=== PATIENT | female | born 1950 | race Caucasian/White ===

== ENCOUNTER 2016-10-28 18:38 | Emergency (ER) | payer MEDICARE, BC ==
[~2016-10-28] VITALS: Ht 165.1 cm; Wt 67.2 kg
[~2016-10-28 18:38] MED LIST: ASPI-586 PO; CANA100T PO; ERGO400C PO; INSU100I14 SQ; KCL10CCR PO; LANTUS SOL100 UNIT/1 SQ; LEVO88TA2 PO; LOPE2TAB17 PO; LSNP20T PO; METF500T4 PO; ONDAN4ODT PO; POTA99TA16 PO; PRM25T PO; SMV20T PO
--- OUTSIDE RECORDS SUMMARY | 2016-10-28 18:42 | XMS REPORT | Referral Summary ---
Author Author [facility] Organization [facility] Address Unknown Phone Unavailable Care Team Providers Care Correctional Officer Name Role Phone Nico [place] PCP [phone] Encounter Date(s): 03/26/15 - 03/26/15 [facility] [address] [place] [address] [facility] Discharge Diagnosis: Benign essential hypertension Discharge Diagnosis: Hypothyroidism Discharge Diagnosis: long-term current use of insulin Discharge Diagnosis: Diabetes type 2, controlled Discharge Diagnosis: Mixed hyperlipidemia Discharge Disposition: 01-Home or Self Care Attending Physician: Angie Branham APRN Admitting Physician: Angie Branham APRN Vital Signs Most recent to 1 oldest [Reference Range]: Peripheral Pulse 76 bpm Rate [60-100 bpm] (03/26/15 9:41 AM) Blood Pressure 110/68 mmHg [90-140/60-90 mmHg] (03/26/15 9:41 AM) Problem List Condition Effective Dates Status Health Status Informant Hypothyroidism Active (disorder)(Confirmed ) Benign essential Active hypertension (disorder)(Confirmed ) 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 Start Date: 06/26/15 Status: OrderedGlucometer Lancets (DME) DME Item ACCU-CHEK SOFTCLIX Test QID, See Instructions, # 1 Each, 0 Refill(s), Supply Start Date: 04/19/14 Status: OrderedInvokana 300 mg oral tablet See Instructions, TAKE 1 TABLET DAILY BEFORE THE FIRST MEAL OF THE DAY, # 90 tabs, 2 Refill(s), NALDO, eRx: [facility], TAKE 1 TABLET DAILY BEFORE THE FIRST MEAL OF THE DAY Start Date: 04/19/15 Status: OrderedKlor-Con 10 10 mEq, Oral, Daily, 0 Refill(s) Start Date: 04/19/14 Status: OrderedKlor-Con M10 See Instructions, 1 daily, 0 Refill(s) Start Date: 04/20/14 Status: OrderedLantus Solostar Pen 100 units/mL subcutaneous solution See Instructions, INJECT 26 UNITS AT BEDTIME, # 15 unknown unit, 5 Refill(s), NALDO, eRx: [facility] #[id number], INJECT 30 UNITS AT BEDTIME Start Date: 03/13/15 Status: Orderedlisinopril 10 mg oral tablet 1 tabs, Oral, Daily, 0 Refill(s) Start Date: 04/19/14 Status: OrderedLISINOPRIL TAB 10MG See Instructions, TAKE 1 TABLET EVERY MORNING, # 90 tabs, 2 Refill(s), eRx: [facility], TAKE 1 TABLET EVERY MORNING Start Date: 09/12/14 Status: OrderedLISINOPRIL TAB 10MG See Instructions, TAKE 1 TABLET EVERY MORNING, # 90 tabs, eRx: [facility], TAKE 1 TABLET EVERY MORNING Start Date: 07/05/15 Status: OrderedmetFORMIN 500 mg oral tablet 1 tabs, Oral, BID, # 180 tabs, 3 Refill(s), Pharmacy: [facility], 1 tabs Oral BID Start Date: 02/01/15 Status: OrderedMiscellaneous DME DME Item PEN NEEDLE 31 gauge x 3/1 Use QID with insulin 4 [id number] needles for 90 day supply., See Instructions, # 4 boxes, 3 Refill(s), Pharmacy: [facility], PEN NEEDLE; 31 gauge x 3/1 Use QID with insulin; 4 [id number] needl... Start Date: 06/15/14 Status: OrderedNovoLOG FlexPen 100 units/mL subcutaneous solution See Instructions, INJECT SUBCUTANEOUSLY 9 UNITS BEFORE BREAKFAST, 7 UNITS BEFORE LUNCH AND 8 UNITS BEFORE SUPPER, # 15 unknown unit, 1 Refill(s), eRx: [facility] #[id number], INJECT SUBCUTANEOUSLY 9 UNITS BEFORE BREAKFAST, 7 UNITS BEFORE LUNCH AND 8... Start Date: 08/15/15 Status: Orderedsimvastatin 20 mg oral tablet 1 tabs, Oral, Bedtime (once a day), 0 Refill(s) Start Date: 04/19/14 Status: OrderedSynthroid 88 mcg (0.088 mg) oral tablet 1 tabs, Oral, Daily, 0 Refill(s) Start Date: 04/19/14 Status: Ordered Results Chemistry Most recent to 1 oldest [Reference Range]: Hgb A1c [4.1-5.6 %] 8.1 % *HI* (03/26/15 10:50 AM) eAvg Glucose 185.8 mg/dL (03/26/15 10:50 AM) Immunizations No data available for this section Procedures Procedure Date Related Diagnosis Body Site Collection of venous blood by venipuncture 03/26/15 Social History Social History Type Response Smoking Status Never smoker Assessment and Plan Extracted from: Title: Office Visit Note Author: Angie Branham APRN Date: 03/26/15 Assessment/Plan 1.Diabetes type 2, controlled 1. check blood sugars fasting and 2 hours after meals 3-7 days per week 2. continue same doses of insulin and oral medications 3. rotate injection sites 4. monitor diet and exercise 5. monitor feet daily I discussed the patient with the preceptor. Ordered: Hemoglobin A1c Office Visit Level 3 Est 55460 2.long-term current use of insulin Ordered: Office Visit Level 3 Est 60943 3.Benign essential hypertension Ordered: Office Visit Level 3 Est 67876 4.Hypothyroidism Ordered: Office Visit Level 3 Est 51586 5.Mixed hyperlipidemia Ordered: Office Visit Level 3 Est 26074 Orders: insulin aspart, See Instructions, INJECT SUBCUTANEOUSLY 8 units ac meals TID, # 15 unknown unit, 2 Refill(s), eRx: [facility] #[id number], INJECT SUBCUTANEOUSLY 9 UNITS BEFORE BREAKFAST, 7 UNITS BEFORE LUNCH AND 8 UNITS BEFORE SUPPER insulin glargine, See Instructions, INJECT 26 UNITS AT BEDTIME, # 15 unknown unit, 5 Refill(s), Rudy HITCHCOCK: [facility] #[id number], INJECT 30 UNITS AT BEDTIME Extracted from: Title: Ambulatory Patient Education Author: Angie Branham APRN Date: Family Medicine Diabetes and Exercise Exercising regularly is important. It is not just about losing weight. It has many health benefits, such as: Improving your overall fitness, flexibility, and endurance. Increasing your bone density. Helping with weight control. Decreasing your body fat. Increasing your muscle strength. Reducing stress and tension. Improving your overall health. People with diabetes who exercise gain additional benefits because exercise: Reduces appetite. Improves the body's use of blood sugar (glucose ). Helps lower or control blood glucose. Decreases blood pressure. Helps control blood lipids (such as cholesterol and triglycerides). Improves the body's use of the hormone insulin by: Increasing the body's insulin sensitivity. Reducing the body's insulin needs. Decreases the risk for heart disease because exercising: Lowers cholesterol and triglycerides levels. Increases the levels of good cholesterol (such as high-density lipoproteins [HDL]) in the body. Lowers blood glucose levels. YOUR ACTIVITY PLAN Choose an activity that you enjoy and set realistic goals. Your health care provider or conservation educator can help you make an activity plan that works for you. You can break activities into 2 or 3 sessions throughout the day. Doing so is as good as one long session. Exercise ideas include: Taking the dog for a walk. Taking the stairs instead of the elevator. Dancing to your favorite song. Doing your favorite exercise with a friend. RECOMMENDATIONS FOR EXERCISING WITH TYPE 1 OR TYPE 2 DIABETES Check your blood glucose before exercising. If blood glucose levels are greater than 240 mg/dL, check for urine ketones. Do not exercise if ketones are present. Avoid injecting insulin into areas of the body that are going to be exercised. For example, avoid injecting insulin into: The arms when playing tennis. The legs when jogging. Keep a record of: Food intake before and after you exercise. Expected peak times of insulin action. Blood glucose levels before and after you exercise. The type and amount of exercise you have done. Review your records with your health care provider. Your health care provider will help you to develop guidelines for adjusting food intake and insulin amounts before and after exercising. If you take insulin or oral hypoglycemic agents, watch for signs and symptoms of hypoglycemia. They include: Dizziness. Shaking. Sweating. Chills. Confusion. Drink plenty of water while you exercise to prevent dehydration or heat stroke. Body water is lost during exercise and must be replaced. Talk to your health care provider before starting an exercise program to make sure it is safe for you. Remember, almost any type of activity is better than none. Document Released: 12/18/2004 Document Revised: 05/31/2014 Document Reviewed: [employer] Patient Information 2014 [employer], [facility]. No follow up information was provided.
[2016-10-28] MEDS ORDERED: OMEP20CA12 PO (18:55)
[2016-10-28] MEDS ORDERED: LSNP10T PO (19:24)
[2016-10-28] MEDS ORDERED: ASPI-586 PO (19:24)
[2016-10-28] MEDS ORDERED: INSU100I14 SQ (19:24)
[2016-10-28] MEDS ORDERED: METF500T4 PO (19:24)
[2016-10-28] MEDS ORDERED: SMV20T PO (19:24)
[2016-10-28] MEDS ORDERED: LEVO88TA4 PO (19:24)
[2016-10-28] MEDS ORDERED: INSASP1U SQ (19:24)
[2016-10-28] MEDS ORDERED: INSU100V5 SC (19:24)
[2016-10-28] MEDS ORDERED: MULT1TAB69 PO (19:24)
[2016-10-28] MEDS ORDERED: CHOL200018 PO (19:24)
[2016-10-28] MEDS ORDERED: POTA10TA6 PO (19:24)
[2016-10-28] MEDS ORDERED: CANA300T PO (19:24)
[2016-10-28] MEDS ORDERED: SODIUM CHLORIDE FLUSH 10 ML SYR IV PRN (19:45)
[2016-10-28] MEDS ORDERED: ONDANSETRON 2 MG/ML (Z0FRAN) 2 ML VIAL IV ONE (19:45)
[2016-10-28] MEDS ORDERED: SODIUM CHLORIDE FLUSH 3 ML SYR IV PRN (19:45)
[2016-10-28 20:03] LABS: MEAN CORPUSCULAR HEMOGLOBIN 30.9 PG (26.0-34.0); MEAN CORPUSCULAR HGB CONC 33.8 g/dL (31.0-37.0); MEAN CORPUSCULAR VOLUME 91 FL (80-100); MEAN PLATELET VOLUME 10.2 FL (6.0-9.5); PLATELET COUNT 226 10^3uL (150-450); WHITE BLOOD COUNT 11.85 10^3uL (4.0-11.0)
[2016-10-28 20:09] LABS: ANION GAP 27.5 MEQ/L (3-15); CALCULATED IONIZED CALCIUM 4.1 mg/dL (3.8-4.6); TOTAL PROTEIN 8.1 g/dL (6.4-8.5)
[2016-10-28 20:13] LABS: BAND NEUTROPHILS % 3 % (0-6); EOSINOPHILS % 0 % (0-4); LYMPHOCYTES # 0.9 #; MONOCYTES # 0.3 #; MONOCYTES % 3 % (3-11); RBC MORPH NORMAL (NORMAL); SEGMENTED NEUTROPHILS % 86 % (51-67); TOTAL CELLS COUNTED 100
--- NOTE | 2016-10-28 20:50 | Diagnostic Imaging Report ---
INDICATION: Pleurisy and bronchitis. Abdominal pain. FINDINGS: PA chest shows the lungs to be well-aerated and clear. The heart is not enlarged. No pneumothorax or pleural effusions. Abdomen shows moderate amount of stool present throughout the colon to the rectum. Moderate stool burden is noted in the rectum. Stomach and small bowel are not distended. There are no air-fluid levels. There are surgical clips in the biliary fossa. IMPRESSION: 1. Finding consistent with moderate constipation. 2. Lungs are clear. Dictated by: Dictated on workstation # [id number]
[2016-10-28 23:24] VITALS: BP 119/59
== END 2016-10-28 23:15 | disposition home or self-care (01) ==
LOC: ED 18:39
DX: R11.2 Nausea with vomiting, unspecified (principal); E86.0 Dehydration; E11.9 Type 2 diabetes mellitus without complications
CPT/HCPCS: 36415; 74022; 80053; 82150; 83036; 83605; 83690; 84484; 85025; 93005; 96361; 96374; 99283; J2405; J7030; 93010; 99285

== ENCOUNTER → 2016-11-13 | Outpatient (CLI) | payer MEDICARE, BC | LOC: RAD 08:18 | PROVIDERS: ATTEND Family Medicine | DX: Z12.31 Encounter for screening mammogram for malignant neoplasm of breast (principal) ==